=== PATIENT | female | born 1930 | race African-American/Black ===

== ENCOUNTER 2016-10-18 13:33 | Observation (INO) | payer BC ==
--- NOTE | ~2016-10-18 | DS ---
Discharge Summary [facility] [address] [facility] [place]. [address] NAME: MARCK WIN : 30 STATUS : DIS Suhas PAT#: [id number] AGE: 86 ADM/REG DATE : 10/18/16 MR#: [id number] REPORT SERV DATE: 10/20/16 DICTATED BY: JR. HERRERA WILLIAM JOHN DATE: 10/19/16 REPORT STATUS : Draft TRANSCRIBED BY: MODCorry DATE: 10/19/16 ADMISSION DATE: 10/18/2016 DISCHARGE DATE: 10/19/2016 DISCHARGE DIAGNOSES: 1. Left arm pain. 2. Headache. 3. Essential hypertension. 4. Microcytic anemia. 5. Hypothyroidism. 6. Gastroesophageal reflux disease. 7. Chronic kidney disease, stage III. OPERATIONS/PROCEDURES AND TREATMENTS: Include: 1. CT of the brain done 10/18/2016 which showed moderate generalized atrophy without evidence of infarction or bleed with prior bilateral cataract surgery. 2. MRI of the brain done 10/18/2016 showed old deep white matter change without acute infarct or bleed. There was mildly enlarged pituitary gland that did not extend into the suprasellar cistern cavernous sinus with no evidence of obvious filling defects, small microadenoma may be present. 3. MRA of the head done 10/18/2016 showed diffuse atherosclerotic intracranial changes. DISCHARGE MEDICATIONS: 1. Aspirin 81 daily. 2. Astelin nasal spray in both nostrils daily. 3. Alphagan one drop in both eyes daily. 4. Synthroid 100 mcg orally daily. 5. Omeprazole 40 mg daily. 6. Potassium chloride 20 mEq daily. 7. Maxzide 75/50 one tablet orally daily. 8. Systane eyedrops three times a day as needed. 9. Travatan one drop in both eyes at bedtime. HOSPITAL COURSE: The patient was an 86-year-old female, who presented to emergency room with left upper extremity pain and weakness. There were no significant records available for review, but the patient complained of trouble lifting her arm and pain in the arm since morning of admission. She said that she had some "achiness" the night prior. Then, when she awakened on the morning of presentation, had pain deep aching in the muscle with some weakness. She presented to the emergency room for further assistance. On initial exam, blood pressure is 174/79, heart rate 76, respiratory rate 18, temperature 97.8. Neck exam was unremarkable. Neurologic exam was unremarkable. CT of the head as detailed above. The patient was admitted to the Clinical Decision Unit for left arm weakness. Evaluation including an MRI of the brain and MRA of the head were undertaken without significant findings. Retrospectively, the patient relates that she helped her daughter who was ill Discharge Summary [address] [place]. [address] NAME: MARCK WIN : 30 STATUS : DIS Suhas PAT#: [id number] AGE: 86 ADM/REG DATE : 10/18/16 MR#: [id number] REPORT SERV DATE: 10/20/16 DICTATED BY: JR. HERRERA WILLIAM JOHN DATE: 10/19/16 REPORT STATUS : Draft TRANSCRIBED BY: KATT DATE: 10/19/16 over the weekend. She thinks she probably over did it. By hospital day #2, the patient had no neurologic symptoms. No weakness. We discussed that an echocardiogram and an ultrasound of the carotids had not been done. The patient wishes to defer on these at this time. I will discharge the patient home to follow with Dr. Tan in one week. FOLLOWUP ISSUES: 1. May consider colonoscopy given the microcytic anemia. 2. For discharge exam and laboratory, please see daily progress note. DISCHARGE DIET: Regular. ACTIVITY: As tolerated. WDEVON/KATT Billy Herrera Jr, MD / [id number] CC: Billy Herrera Jr, MD John Laramore, M.D.
--- NOTE | ~2016-10-18 | HP ---
History And Physical [place] [id number] [facility] [place]. [address] NAME: MARCK WIN : 30 STATUS : ADM Suhas PAT#: [id number] AGE: 86 ADM/REG DATE : 10/18/16 MR#: [id number] REPORT SERV DATE: 10/18/16 DICTATED BY: ARSEN DAVIS DATE: 10/18/16 REPORT STATUS : Draft TRANSCRIBED BY: MODL DATE: 10/18/16 DATE OF ADMISSION: 10/18/2016 CHIEF COMPLAINT: Left upper extremity pain and numbness/weakness. HISTORY OF PRESENT ILLNESS: Obtained from the patient, the patient's family present at bedside, and emergency room documents. There are no real prior medical records available for us to review. According to the information available, the patient is a pleasant 86-year old black woman with history of hypertension, hypothyroidism, and glaucoma presented to the emergency room with the above complaints of trouble lifting left arm, numbness and pain in the left arm area since this morning. The patient stated that she had some "achiness" last night, the night prior to admission, after she had tried to assist her daughter, who is presently sick and then the symptoms resolve, went to sleep, and this morning when she woke up noticed that she had pain and deep achiness in the muscle of the left arm with weakness and difficulty raising the left arm. Reports a nonspecific headache, mostly occipital, but apparently unrelated and minimal at best. No recent change in her medications. No recent trauma. No fever or chills. No chest pain. No palpitations. No nausea or vomiting. The patient has been very reluctant to come to the emergency room, as she had the symptoms almost resolved. No chest pain. No other associated worsening or relieving factors. No change in vision. In the emergency room, the patient was investigated, was noticed to have some weakness raising in the left arm, but no other significant physical findings. CT scan of the head/brain without contrast was with no acute intracranial pathology, but due to the above presentation and due to her risk factors, the patient was referred to the Hospitalist Service for further management and evaluation. PAST MEDICAL HISTORY: Significant for hypertension, significant for hypothyroidism, significant for GERD. PAST SURGICAL HISTORY: Significant for thyroid surgery and significant for hysterectomy. SOCIAL HISTORY: She is , retired, lives with her family. Retired nurse. No tobacco, no alcohol, no drug abuse is reported. FAMILY HISTORY: Significant for hypertension. ALLERGIES: NO KNOWN DRUG ALLERGIES. HOME MEDICATION LIST: According to the list provided, the patient is supposed to take aspirin 81 mg p.o. daily, Astelin nasal spray one spray each nostril daily, Alphagan ophthalmic drops one drop both eyes daily, Synthroid 100 mcg p.o. daily, Prilosec 40 mg p.o. daily, Systane solution one drop t.i.d. p.r.n. both eyes, potassium chloride 20 mEq p.o. daily, Maxzide 50 (75/50 mg) one tablet p.o. daily, otic drops p.r.n. earache, and Travatan ophthalmic drops one drop both eyes at bedtime. REVIEW OF SYSTEMS: Per H and P, otherwise negative in all review of systems. Please note, the comprehensive History And Physical [address] [address] NAME: MARCK WIN : 30 STATUS : ADM Suhas PAT#: [id number] AGE: 86 ADM/REG DATE : 10/18/16 MR#: [id number] REPORT SERV DATE: 10/18/16 DICTATED BY: ARSEN DAVIS DATE: 10/18/16 REPORT STATUS : Draft TRANSCRIBED BY: KATT DATE: 10/18/16 review of system was obtained and pertinent positives were included in the H and P. PHYSICAL EXAMINATION: GENERAL: Pleasant, cooperant, presently in no acute distress. VITAL SIGNS: Upon arrival in the emergency room, blood pressure 174/79, pulse 76, respiratory rate 18, temperature 97.8, oxygen saturation 98% in room air. HEENT: With bilateral cataracts. Extraocular movements intact. Throat, mild erythema. No exudate. NECK: Supple. No JVD. No bruits. No thyromegaly. No lymph nodes. LUNGS: Bilateral air entry with few dry bibasilar crackles. No wheezing. No rales. HEART: Positive S1, S2. Regular rate and rhythm. Positive mitral regurgitation. Murmur at the apex. Positive aortic sclerosis murmur. No reproducible chest pain. PMI not displaced by palpation. ABDOMEN: Positive bowel sounds. Soft, nontender, no guarding, no hepatosplenomegaly. EXTREMITIES: Decreased range of motion. Osteoarthritic changes. No clubbing, no cyanosis, no edema. NEUROLOGIC: Alert and oriented x3. Grossly nonfocal. Cranial nerves 2 through 12 grossly intact. Motor strength 5/5, symmetrical bilateral. Deep tendon reflexes 2/2, symmetrical bilateral. BACK: With decreased range of motion. No focal localized tenderness. No CVA tenderness. SKIN: No bruises, no rashes, no lacerations. SIGNIFICANT LABORATORY DATA: Chest x-ray (not available, not done). EKG; sinus rhythm at 84 beats per minute. Left anterior hemiblock. LVH. No acute ST elevation. No old EKG available for comparison. CT scan of the head/brain by preliminary report from emergency room showed moderate generalized atrophy. No acute intracranial pathology. Sodium 143, potassium 3.8, chloride 111, bicarb 29, BUN 18, creatinine 0.94, glucose 79, calcium 8.8, magnesium 1.9. Troponin I less than 0.02. White cell count 5.7, hemoglobin 10.1, platelet count 186. INR 1.1. ASSESSMENT AND PLAN AND PROBLEM LIST: The patient is a pleasant 86-year-old black woman with history of hypertension, hypothyroidism, presented with nonspecific left upper extremity weakness and pain. IMPRESSION: 1. Neurologic. a. Left upper extremity weakness and pain. b. Transient ischemic attack (possible). c. Headache (nonspecific). For all the above, patient has been admitted on the Hospitalist Service as an observation on the telemetry setting with skilled neurologic checks. We are going to continue increased dose of aspirin to 162 mg p.o. daily. We are going to obtain an MRI and MRA of the brain, and check magnesium, phosphorus, TSH, vitamin B12, and folate. Consider neurologic consult. 2. Hypertension, essential hypertension. We are going to continue Maxzide and use IV hydralazine p.r.n. for significantly elevated blood pressure. 3. Anemia, microcytic. We are going to send anemia studies and monitor hemoglobin and hematocrit. History And Physical [address] [address] NAME: MARCK WIN : 30 STATUS : ADM Suhas PAT#: [id number] AGE: 86 ADM/REG DATE : 10/18/16 MR#: [id number] REPORT SERV DATE: 10/18/16 DICTATED BY: ARSEN DAVIS DATE: 10/18/16 REPORT STATUS : Draft TRANSCRIBED BY: MODCorry DATE: 10/18/16 4. Hypothyroidism. Check a TSH and free T4, free T3. Continue her home Synthroid. 5. Gastroesophageal reflux disease without esophagitis and history of biliary dyskinesia. Continue PPI. Provide anti-reflux and anti-GERD instructions and dietary changes. 6. Left upper extremity and arm pain likely musculoskeletal, possible due to osteoarthritis. We are going to consider physical therapy and will local Voltaren p.r.n. pain. 7. Glaucoma. Continue her ophthalmic drops. PROGNOSIS: Good for this admission. Discussed with patient and patient's family present at bedside. Questions answered in full. Please note, the patient is a full code at this moment as discussed with the patient at the bedside. RF/KATT Arsen Davis M.D. / [id number] CC: Billy Herrera Jr, MD John Laramore, M.D.
[2016-10-18 13:31] LABS: BASOPHILS 0.4 %; BASOPHILS ABSOLUTE 0.02 10/3/uL (0.0-0.16); EOSINOPHILS 5.8 %; EOSINOPHILS ABSOLUTE 0.33 10/3/uL (0.0-0.53); ER CBC TAT 0 Hrs 03 Mins; HEMOGLOBIN 10.1 g/dL (12.0-16.0); LYMPHOCYTES 37.8 %; LYMPHOCYTES ABSOLUTE 2.15 10/3/uL (0.67-4.30); MEAN CORPUS HGB CONC 32.6 g/dL (32.0-36.0); MEAN CORPUSCULAR HEMOGLOB 23.7 pg (26.0-34.0); MEAN CORPUSCULAR VOLUME 72.6 fL (80-100); MEAN PLATELET VOLUME 10.5 fL (9.2-13.0); MONOCYTES 7.6 %; MONOCYTES ABSOLUTE 0.43 10/3/uL (0.21-1.20); NEUTROPHILS 48.4 %; NEUTROPHILS ABSOLUTE 2.76 10/3/uL (2.02-8.40); PLATELET COUNT 186 10/3/uL (150-400); RBC DISTRIBUTION WIDTH 16.8 % (12.0-16.0); RED CELL COUNT 4.27 10/6/uL (4.0-5.6); WHITE BLOOD CELLS 5.7 10/3/uL (4.5-10.5)
[2016-10-18 13:34] LABS: MANUAL DIFF NO %
[2016-10-18 13:42] LABS: INTERNATIONAL NORMAL RATI 1.1 UNITS (-); PARTIAL THROMBO TIME 36.3 SEC (22.5-37.2); PROTIME (NOT ORD) 14.2 SEC (12.0-14.5)
[2016-10-18 13:50] LABS: BUN (BLOOD UREA NITROGEN) 18 MG/DL (6-23); CALCIUM, SERUM 8.8 MG/DL (8.5-10.4); CHEST PAIN PROFILE TAT 0 Hrs 22 Mins; CHLORIDE, SERUM 111 MMOL/L (96-112); CO2 (CARBON DIOXIDE) 29 MMOL/L (24-34); CREATININE 0.94 MG/DL (0.55-1.02); GFR AFRICAN AMERICAN 64 ML/MIN (>=60); GFR NON AFRICAN AMERICAN 55 ML/MIN (>=60); GLUCOSE, SERUM 79 MG/DL (60-99); POTASSIUM, SERUM 3.8 MMOL/L (3.5-5.3); SODIUM, SERUM 143 MMOL/L (135-148); TROPONIN I <0.02 NG/ML (<0.05)
[2016-10-18] MEDS ORDERED: KLOR-CON M2020 MEQ PO (16:17)
[2016-10-18] MEDS ORDERED: LEVOTHYROXIN100 MCG PO (16:17)
[2016-10-18] MEDS ORDERED: PRILOSEC40 MG PO (16:17)
[2016-10-18] MEDS ORDERED: MAXZIDE PO (16:17)
[2016-10-18] MEDS ORDERED: ALPHAGAN OPH (16:18)
[2016-10-18] MEDS ORDERED: SYSTANE OPH (16:18)
[2016-10-18] MEDS ORDERED: ASTELIN NAS (16:18)
[2016-10-18] MEDS ORDERED: NEO/POLY/HC OTIC OT (16:19)
[2016-10-18] MEDS ORDERED: ASAB PO (16:19)
[2016-10-18] MEDS ORDERED: TRAVATAN Z OPTH OPH (16:20)
[2016-10-18 21:16] LABS: CPK 148 U/L (0-200); FERRITIN 44 NG/ML (8-252); FREE T4 1.31 NG/DL (0.76-1.46); IRON BINDING CAPACITY 281 MCG/DL (225-410); IRON, SERUM 102 MCG/DL (35-150); PHOSPHORUS, SERUM 1.7 MG/DL (2.5-4.5)
[2016-10-18 21:17] LABS: CK-MB 1.4 NG/ML
[2016-10-19 04:01] LABS: BASOPHILS 0.2 %; BASOPHILS ABSOLUTE 0.01 10/3/uL (0.0-0.16); EOSINOPHILS 5.7 %; EOSINOPHILS ABSOLUTE 0.33 10/3/uL (0.0-0.53); HEMATOCRIT 31.6 % (36.0-48.0); HEMOGLOBIN 10.4 g/dL (12.0-16.0); IMMATURE GRANULOCYTES 0.2 %; IMMATURE GRANULOCYTES ABSOLUTE 0.01 10/3/uL (0.0-0.11); LYMPHOCYTES 39.4 %; MEAN CORPUS HGB CONC 32.9 g/dL (32.0-36.0); MEAN CORPUSCULAR HEMOGLOB 24.1 pg (26.0-34.0); MEAN CORPUSCULAR VOLUME 73.1 fL (80-100); MEAN PLATELET VOLUME 10.6 fL (9.2-13.0); MONOCYTES 7.5 %; MONOCYTES ABSOLUTE 0.44 10/3/uL (0.21-1.20); NEUTROPHILS ABSOLUTE 2.75 10/3/uL (2.02-8.40); PLATELET COUNT 185 10/3/uL (150-400); RBC DISTRIBUTION WIDTH 16.6 % (12.0-16.0); RED CELL COUNT 4.32 10/6/uL (4.0-5.6); WHITE BLOOD CELLS 5.8 10/3/uL (4.5-10.5)
[2016-10-19 04:02] LABS: MANUAL DIFF NO %
[2016-10-19 04:44] LABS: ALKALINE PHOSPHATASE 74 U/L (45-117); BUN (BLOOD UREA NITROGEN) 16 MG/DL (6-23); CHLORIDE, SERUM 108 MMOL/L (96-112); CHOL/HDL RATIO(NOT ORDER) 3.4 (0-5); CHOLESTEROL 182 MG/DL (< 200); CK-MB 1.6 NG/ML; CO2 (CARBON DIOXIDE) 26 MMOL/L (24-34); CPK 168 U/L (0-200); CREATININE 0.96 MG/DL (0.55-1.02); DIRECT BILIRUBIN < 0.1 MG/DL (0.0-0.4); GFR AFRICAN AMERICAN 62 ML/MIN (>=60); GFR NON AFRICAN AMERICAN 54 ML/MIN (>=60); GLUCOSE, SERUM 123 MG/DL (60-99); HDL CHOLESTEROL 54 MG/DL (> 49); INDIRECT BILIRUBIN(NOT ORDER) 0.3 MG/DL (0.1-0.9); LDL CHOLESTEROL 112 MG/DL (< 130); NON-HDL CHOLESTEROL 128 MG/DL (< 160); PHOSPHORUS, SERUM 1.7 MG/DL (2.5-4.5); POTASSIUM, SERUM 3.6 MMOL/L (3.5-5.3); SGOT(AST) 17 U/L (5-40); SGPT(ALT) 7 U/L (5-65); SODIUM, SERUM 143 MMOL/L (135-148); TOTAL BILIRUBIN 0.4 MG/DL (0-1.2); TOTAL PROTEIN 6.5 G/DL (6.0-8.5); TRIGLYCERIDE 83 MG/DL (< 150)
== END 2016-10-19 14:35 | disposition home or self-care (01) ==
LOC: ER 13:33 → CDU1 16:58
PROVIDERS: Emergency Medicine; Internal Medicine
DX: M79.602 Pain in left arm (principal); R51 Headache; E03.9 Hypothyroidism, unspecified; K21.9 Gastro-esophageal reflux disease without esophagitis; I12.9 Hypertensive chronic kidney disease with stage 1 through stage 4 chronic kidney disease, or unspecified chronic kidney disease; N18.3 Chronic kidney disease, stage 3 (moderate); D50.9 Iron deficiency anemia, unspecified; H40.9 Unspecified glaucoma; Z90.710 Acquired absence of both cervix and uterus
CPT/HCPCS: 70450; 70544; 70553; 80048; 80061; 80069; 80076; 82550; 82553; 82607; 82728; 83540; 83550; 83735; 84100; 84439; 84443; 84481; 84484; 85025; 85610; 85730; 93005; 99285; A9270-GY; A9577; G0378